=== PATIENT | female | born 1960 | race Caucasian/White ===

== ENCOUNTER → 2020-02-09 11:35 | Outpatient (CLI) | payer OTHER, SELFPAY ==
--- NOTE | ~2020-02-09 | MM_ITS ---
EXAMINATION: MM screening mammo BI HISTORY: Screening mammogram TECHNIQUE: Craniocaudal and mediolateral oblique 3-D tomosynthesis images were obtained and synthetic 2-D images were generated. CAD analysis was submitted and interpreted. COMPARISON: Comparison to multiple prior studies sequentially, with oldest reviewed study dated 04/2016. BREAST PARENCHYMAL COMPOSITION: There are scattered areas of fibroglandular density. FINDINGS: There is no evidence of suspicious mass, calcification, or architectural distortion to sugg est malignancy in either breast. There has been no suspicious interval change. IMPRESSION: 1. No mammographic evidence of malignancy. 2. Recommend routine screening mammography in one year. BI-RADS Category 1: Negative Reviewed, dictated and finalized at location A.
== END ==
PROVIDERS: PCP Internal Medicine; Visit Provider Student in an Organized Health Care Education/Training Program
DX: Z12.31 Encounter for screening mammogram for malignant neoplasm of breast (principal)
CPT/HCPCS: 77067

== ENCOUNTER → 2020-07-02 11:15 | Outpatient (CLI) | payer OTHER, SELFPAY ==
--- NOTE | ~2020-07-02 | DEXA_ITS ---
Bone Density Report Name: Ally Warner Age: 60 Sex: Female Ethnicity: White Date of : 1960 Indication: osteopenia; height loss; hysterectomy; postmenopausal Referring Provider: , ELOY De Paz Study: Bone densitometry was performed. Exam Date: July 02, 2020 Accession number: [id number] Bone Density: Region BMD T-score Z-score Classification AP Spine (L1-L4) 0.858 -1.7 -0.4 Osteopenia Femoral Neck (Left) 0.784 -0.6 0.6 Normal Total Hip (Left) 0.973 0.3 1.1 Normal Femoral Neck (Right) 0.777 -0.6 0.5 Normal Total Hip (Right) 0.939 0.0 0.8 Normal Total Hip Mean 0.956 0.2 1.0 Normal World Health Organization criteria for BMD impression classify patients as: Normal (T-score at or above -1.0), Osteopenia (T-score between -1.0 and -2.5), or Osteoporosis (T-score at or below -2.5). 10-year Fracture Risk(1): Major Osteoporotic Fracture 6.1% Hip Fracture 0.2% Reported Risk Factors: [place] (), Neck BMD=0.777, BMI=29.6 (1) FRAX(R) Version 3.08. Fracture probability calculated for an untreated patient. Fracture probability may be lower if the patient has received treatment. Previous Exams: Region Exam Age BMD T-score BMD Change BMD Change Date g/cm2 vs Baseline vs Previous AP Spine(L1-L4) 07/02/2020 60 0.858 -1.7 -0.035* -0.017 12/07/2017 57 0.875 -1.6 -0.018 -0.018 11/21/2015 55 0.893 -1.4 0.000 0.000 10/18/2013 53 0.893 -1.4 Total Hip(Left) 07/02/2020 60 0.973 0.3 -0.001 -0.012 12/07/2017 57 0.985 0.4 0.011 0.058* 11/21/2015 55 0.928 -0.1 -0.047* -0.047* 10/18/2013 53 0.974 0.3 Total Hip(Right) 07/02/2020 60 0.939 0.0 -0.028* 0.046* 12/07/2017 57 0.893 -0.4 -0.074* -0.037* 11/21/2015 55 0.929 -0.1 -0.038* -0.038* 10/18/2013 53 0.967 0.2 *Denotes significance at 95% confidence level, LSC for AP Spine = 0.022 g/cm2, LSC for Total Hip = 0.027 g/cm2 Clinical Information Provided by Patient: Has used the following medications: Vitamin D, Calcium Has the following medical conditions: Hysterectomy Patient maximum height was 64.5 Menopause Age: 47 Does not regularly consume dairy products Drinks caffeinated beverages Onset of menses at age 15 Number of children 3 Impression: The patient has low bone ma
== END ==
PROVIDERS: PCP Internal Medicine; Visit Provider Internal Medicine
DX: Z78.0 Asymptomatic menopausal state (principal); M85.88 Other specified disorders of bone density and structure, other site
CPT/HCPCS: 77080

== ENCOUNTER → 2021-04-10 15:05 | Outpatient (CLI) | payer OTHER, SELFPAY ==
--- NOTE | ~2021-04-10 | MM_ITS ---
EXAMINATION: MM screening wendi BI w philip HISTORY: Screening mammogram TECHNIQUE: Craniocaudal and mediolateral oblique 3-D tomosynthesis images were obtained and synthetic 2-D images were generated. CAD analysis was submitted and interpreted. COMPARISON: 02/09/2020, 12/23/2018, 12/07/2017 bilateral digital screening mammogram examinations BREAST PARENCHYMAL COMPOSITION: There are scattered areas of fibroglandular density. FINDINGS: There is no evidence of suspicious mass, calcification, or architectural distortion to sugg est malignancy in either breast. There has been no suspicious interval change. IMPRESSION: 1. No mammographic evidence of malignancy. 2. Recommend routine screening mammography in one year. BI-RADS Category 1: Negative Reviewed, dictated and finalized at location A.
== END ==
PROVIDERS: PCP Internal Medicine; Visit Provider Student in an Organized Health Care Education/Training Program
DX: Z12.31 Encounter for screening mammogram for malignant neoplasm of breast (principal)
CPT/HCPCS: 77063; 77067

== ENCOUNTER → 2022-04-15 15:09 | Outpatient (CLI) | payer OTHER, SELFPAY ==
--- NOTE | ~2022-04-15 | MM_ITS ---
EXAMINATION: MM screening wendi BI w philip HISTORY: Screening mammogram TECHNIQUE: Craniocaudal and mediolateral oblique 3-D tomosynthesis images were obtained and synthetic 2-D images were generated. CAD analysis was submitted and interpreted. COMPARISON: 04/10/2021, 02/09/2020, bilateral screening mammogram examinations BREAST PARENCHYMAL COMPOSITION: There are scattered areas of fibroglandular density. FINDINGS: There is no evidence of suspicious mass, calcification, or architectural distortion to sugg est malignancy in either breast. There has been no suspicious interval change. IMPRESSION: 1. No mammographic evidence of malignancy. 2. Recommend routine screening mammography in one year. BI-RADS Category 1: Negative Reviewed, dictated and finalized at location A.
== END ==
PROVIDERS: PCP Internal Medicine; Visit Provider Student in an Organized Health Care Education/Training Program
DX: Z12.31 Encounter for screening mammogram for malignant neoplasm of breast (principal)
CPT/HCPCS: 77063; 77067

== ENCOUNTER 2022-11-25 11:41 | Emergency (ER) | payer OTHER, SELFPAY ==
[2022-11-25 11:57] VITALS: BP 137/65; PULSE 82; RESP 16; TEMP 36.6; O2SAT 99
--- NOTE | 2022-11-25 12:33 | ED.URI ---
HPI - URI/Sore Throat General Chief Complaint: Upper Respiratory Infection Stated Complaint: uri Time Seen by Provider: 11/25/22 12:34 Source: patient, RN notes reviewed and old records reviewed Mode of arrival: ambulatory Limitations: no limitations History of Present Illness HPI Narrative: 62-year-old female presents to the [facility] with complaints sinus congestion and pressure as well as headache, ear fullness for almost 2 weeks. Has tried akhv-tfz-apwxcyu products but has been very cautious due to her blood pressure issues and being diabetic. Related Data Home Medications Medication Instructions Recorded Confirmed aspirin 81 mg chewable tablet 81 mg PO DAILY 11/18/19 11/25/22 (Ramo Chewable Low Dose Aspirin) atorvastatin 40 mg tablet 40 mg PO DAILY 11/18/19 11/25/22 cholecalciferol (vitamin D3) 100 4,000 unit PO DAILY 11/18/19 11/25/22 mcg (4,000 unit) capsule cinnamon bark 500 mg capsule 500 mg PO DAILY 11/18/19 11/25/22 (Cinnamon) lisinopril 10 mg tablet 10 mg PO DAILY 11/18/19 11/25/22 metoprolol succinate 50 mg capsule 50 mg PO DAILY 11/18/19 11/25/22 sprinkle, ext. release 24 hr multivitamin,lg-imva-vopfvjtu 1 tablet PO DAILY 11/18/19 11/25/22 (Complete Multivitamin tablet) psyllium (Fiber Smooth oral powder) 1 tbsp PO DAILY 11/18/19 11/25/22 ascorbic acid (vitamin C) 1,000 mg 1 g PO DAILY 11/20/20 11/25/22 tablet glipizide 10 mg tablet, extended 10 mg PO DAILY 11/20/20 11/25/22 release 24 hr zinc acetate 50 mg (zinc) capsule 50 mg PO DAILY 11/20/20 11/25/22 (Galzin) linagliptin 5 mg tablet (Tradjenta) 5 mg PO DAILY 11/25/22 11/25/22 Allergies Allergy/AdvReac Type Severity Reaction Status Date / Time hydrochlorothiazide Allergy Unknown Pass Out Verified 11/25/22 11:42 metformin AdvReac Severe Diahrrea Verified 11/25/22 11:42 Review of Systems Review of Systems: All systems reviewed & are unremarkable except as noted in HPI and below Constitutional: Constitutional: Reports no additional constitutional complaints Eyes: Eyes: Reports no additional eye complaints ENT: Reports as per HPI and Reports nasal congestion Cardiovascular: Cardiovascular: Reports no additional cardiovascular complaints, Denies chest pain and Denies dyspnea Respiratory: Respiratory: Reports no additional respiratory complaints, Denies chest congestion, Denies cough and Denies dyspnea Gastrointestinal: Gastrointestinal: Reports no additional gastrointestinal complaints, Denies abdominal pain, Denies nausea and Denies vomiting Musculoskeletal: Musculoskeletal: Reports no additional musculoskeletal complaints Integumentary/Breasts: Skin/Breast: Reports system reviewed and no additional complaints, except as docu Neurologic: Reports system reviewed and no additional complaints, except as documented Psychiatric: Psychiatric: Reports no additional psychiatric complaints Allergic/Immunologic: Allergic/Immunologic: Reports no additional allergic/immunologic complaints [facility] Past Medical History Medical History (Updated 11/25/22 @ 18:23 by Qian Pinto APRN) Diabetes H/O vaginal delivery x3 10/03/1991, 02/27/1988, 02/04/1985 High cholesterol 2011 HTN (hypertension) Osteopenia 2016 Surgical History Surgical History H/O dilation and curettage 1986 H/O removal of cyst Left Thumb History of ankle surgery Left, 1988 History of hysterectomy with unilateral oophorectomy 2010 [place] teeth removed 1978 Family History Family History Father Diabetes mellitus Mother Diabetes mellitus Hypertension Family history of elevated blood lipids Sibling Family history of malignant neoplasm of breast in first degree relative Other Family history of malignant neoplasm of breast in first degree relative Social History Social History
== END 2022-11-25 12:49 | disposition home or self-care (01) ==
PROVIDERS: Emergency Provider Nurse Practitioner; PCP Internal Medicine
DX: J32.9 Chronic sinusitis, unspecified (principal); H65.01 Acute serous otitis media, right ear; E11.9 Type 2 diabetes mellitus without complications; E78.00 Pure hypercholesterolemia, unspecified; I10 Essential (primary) hypertension; M85.80 Other specified disorders of bone density and structure, unspecified site
CPT/HCPCS: 99213; G0463

== ENCOUNTER → 2023-02-18 07:43 | Outpatient (CLI) | payer BC, SELFPAY ==
--- NOTE | ~2023-02-18 | MMUS_ITS ---
EXAMINATION: MM diagnostic wendi LT w philip, US breast LT limited HISTORY: Pain and lump in the upper outer quadrant, extending into the axilla for one month. TECHNIQUE: ML, MLO and craniocaudal 3-D tomosynthesis images of the left breast were performed and sy nthetic 2-D images were generated. CAD analysis was submitted and interpreted. High resolution upper outer quadrant left breast ultrasound was performed. COMPARISON: 04/15/2022, 04/10/2021, 02/09/2020 bilateral screening mammogram examinations BREAST PARENCHYMAL COMPOSITION: There are scattered areas of fibroglandular density. FINDINGS: MAMMOGRAPHIC FINDINGS: No suspicious mass or architectural distortion, malignant calcification, skin thickening or retractio n or significant new or developing density is detected. ULTRASOUND: No suspicious mass or shadowing, cyst or other significant finding is noted in the left breast upper outer quadrant or axilla on the left. IMPRESSION: 1. No mammographic evidence of malignancy 2. Routine annual mammographic screening is recommended BI-RADS Category 1: Negative Reviewed, dictated and finalized at location A. IMPRESSION: 1. No mammographic evidence of malignancy 2. Routine annual mammographic screening is recommended BI-RADS Category 1: Negative
== END ==
PROVIDERS: PCP Internal Medicine; Visit Provider Registered Nurse
DX: N64.4 Mastodynia (principal)
CPT/HCPCS: 76642; 77061; 77065; G0279

== ENCOUNTER → 2023-04-17 09:51 | Outpatient (CLI) | payer BC, SELFPAY ==
--- NOTE | ~2023-04-17 | DEXA_ITS ---
Bone Density Report Name: RYANN MCKENNA Age: 62 Sex: Female Ethnicity: White Date of : 1960 Indication: osteopenia; height loss; hysterectomy;postmenopausal Referring Provider: SHANIA ROCHE Study: Bone densitometry was performed. Exam Date: April 17, 2023 Accession number: [id number] Bone Density: Region BMD T-score Z-score Classification AP Spine (L1-L4) 0.827 -2.0 -0.5 Osteopenia Femoral Neck (Left) 0.741 -1.0 0.3 Normal Total Hip (Left) 0.928 -0.1 0.9 Normal Femoral Neck (Right) 0.729 -1.1 0.2 Osteopenia Total Hip (Right) 0.887 -0.4 0.5 Normal Total Hip Mean 0.908 -0.3 0.7 Normal World Health Organization criteria for BMD impression classify patients as: Normal (T-score at or above -1.0), Osteopenia (T-score between -1.0 and -2.5), or Osteoporosis (T-score at or below -2.5). 10-year Fracture Risk(1): Major Osteoporotic Fracture 7.4% Hip Fracture 0.5% Reported Risk Factors: [place] (), Neck BMD=0.729, BMI=26.9 (1) FRAX(R) Version 3.08. Fracture probability calculated for an untreated patient. Fracture probability may be lower if the patient has received treatment. Previous Exams: Region Exam Age BMD T-score BMD Change BMD Change Date g/cm2 vs Baseline vs Previous AP Spine(L1-L4) 04/17/2023 62 0.827 -2.0 -0.066* -0.031* 07/02/2020 60 0.858 -1.7 -0.035* -0.017 12/07/2017 57 0.875 -1.6 -0.018 -0.018 11/21/2015 55 0.893 -1.4 0.000 0.000 10/18/2013 53 0.893 -1.4 Total Hip(Left) 04/17/2023 62 0.928 -0.1 -0.047* -0.046* 07/02/2020 60 0.973 0.3 -0.001 -0.012 12/07/2017 57 0.985 0.4 0.011 0.058* 11/21/2015 55 0.928 -0.1 -0.047* -0.047* 10/18/2013 53 0.974 0.3 Total Hip(Right) 04/17/2023 62 0.887 -0.4 -0.080* -0.051* 07/02/2020 60 0.939 0.0 -0.028* 0.046* 12/07/2017 57 0.893 -0.4 -0.074* -0.037* 11/21/2015 55 0.929 -0.1 -0.038* -0.038* 10/18/2013 53 0.967 0.2 *Denotes significance at 95% confidence level, LSC for AP Spine = 0.022 g/cm2, LSC for Total Hip = 0.027 g/cm2 Clinical Information Provided by Patient: Has used the following medications: Vitamin D, Calcium Has the following medical conditions: Hysterectomy Patient maximum height was 65 Menopause Age: 47 Does not regularly consume dairy produc
--- NOTE | ~2023-04-17 | MM_ITS ---
EXAMINATION: MM screening wendi RT w philip HISTORY: Screening mammogram TECHNIQUE: Craniocaudal and mediolateral oblique 3-D tomosynthesis images were obtained and synthetic 2-D images were generated. CAD analysis was submitted and interpreted. COMPARISON: February 18, 2023 diagnostic left mammogram and limited left breast ultrasound examination 04/15/2022, 04/10/2021, 02/09/2020 bilateral screening mammogram examinations BREAST PARENCHYMAL COMPOSITION: There are scattered areas of fibroglandular density. FINDINGS: There is no evidence of suspicious mass, calcification, or architectural distortion to sugg est malignancy in the right breast. There has been no suspicious interval change. IMPRESSION: 1. No mammographic evidence of malignancy. 2. Recommend routine screening mammography in one year. BI-RADS Category 1: Negative Reviewed, dictated and finalized at location A.
== END ==
PROVIDERS: PCP Internal Medicine; Visit Provider Registered Nurse
DX: Z12.31 Encounter for screening mammogram for malignant neoplasm of breast (principal); M85.80 Other specified disorders of bone density and structure, unspecified site; Z78.0 Asymptomatic menopausal state
CPT/HCPCS: 77063; 77067; 77080

== ENCOUNTER → 2023-04-28 07:48 | Outpatient (CLI) | payer BC, SELFPAY ==
--- NOTE | ~2023-04-28 | MR_ITS ---
EXAMINATION: MR cervical spine wo con DATE: 04/28/2023 08:21 INDICATION: Neck pain. TECHNIQUE: Magnetic resonance imaging (MRI) of the cervical spine was performed without intravenous c ontrast. COMPARISON: None FINDINGS: There is 2 mm retrolisthesis of C5 on C6. There is hypolordosis of cervical spine. Vertebra l body heights are normal. There is moderately decreased disc height at C5-C6 and C6-C7. The spinal c ord signal intensity is normal. The following disc levels are specifically discussed: C2-C3: The disc does not extend beyond the endplate margin. There is no uncovertebral joint osteoarth ritis. There is mild bilateral facet joint osteoarthritis. There is no neural foraminal stenosis. The re is no central canal stenosis. C3-C4: The disc does not extend beyond the endplate margin. There is mild bilateral uncovertebral enrique nt osteoarthritis. There is no facet joint osteoarthritis. There is no neural foraminal stenosis. The re is no central canal stenosis. C4-C5: The disc does not extend beyond the endplate margin. There is no uncovertebral joint osteoarth ritis. There is mild left facet joint osteoarthritis. There is no neural foraminal stenosis. There is no central canal stenosis. C5-C6: There is a left central extrusion. There is severe bilateral uncovertebral joint osteoarthriti s. There is mild bilateral facet joint osteoarthritis. There is mild bilateral neural foraminal steno sis. There is moderate central canal stenosis with ventral and dorsal indentation of the spinal cord. C6-C7: There is a central extrusion. There is moderate bilateral uncovertebral joint osteoarthritis. There is mild left facet joint osteoarthritis. There is mild left neural foraminal stenosis. There is mild central canal stenosis. C7-T1: The disc does not extend beyond the endplate margin. There is no uncovertebral joint osteoarth ritis. There is mild bilateral facet joint osteoarthritis. There is no neural foraminal stenosis. The re is no central canal stenosis. IMPRESSION: 1. Moderate cervical spondylosis. Reviewed, dictated and finalized at location A.
== END ==
PROVIDERS: PCP Internal Medicine; Visit Provider Internal Medicine
DX: M47.892 Other spondylosis, cervical region (principal)
CPT/HCPCS: 72141

== ENCOUNTER 2023-06-05 10:17 | Emergency (ER) | payer BC, SELFPAY ==
[2023-06-05 10:27] VITALS: BP 124/58; PULSE 86; RESP 12; TEMP 36.3; O2SAT 100
--- NOTE | 2023-06-05 10:48 | ED.FEMALEGU ---
HPI - Female Genitourinary General Chief complaint: Urogenital-Female Stated complaint: Vaginal Problems Time Seen by Provider: 06/05/23 10:36 Source: patient and RN notes reviewed Mode of arrival: ambulatory Limitations: no limitations History of Present Illness HPI Narrative: Patient presents today complaining of external genital itching since March. States she was initially seen by her PCP at the beginning of May for the external itching and some vaginal discharge, and prescribed Metrogel for bacterial vaginosis, which she tested positive for. When she did not get any improvement in her symptoms with the Metrogel, they prescribed her a 7 day course of Flagyl. She is currently on day 5. States the discharge has improved, but the external itching and irritation has persisted. She is wondering whether not she may have a yeast infection. History of diabetes. Related Data Home Medications Medication Instructions Recorded Confirmed aspirin 81 mg chewable tablet 81 mg PO DAILY 11/18/19 11/25/22 (Ramo Chewable Low Dose Aspirin) atorvastatin 40 mg tablet 40 mg PO DAILY 11/18/19 11/25/22 cholecalciferol (vitamin D3) 100 4,000 unit PO DAILY 11/18/19 11/25/22 mcg (4,000 unit) capsule lisinopril 10 mg tablet 10 mg PO DAILY 11/18/19 11/25/22 metoprolol succinate 50 mg capsule 50 mg PO DAILY 11/18/19 11/25/22 sprinkle, ext. release 24 hr multivitamin,yg-stkf-qibmwate 1 tablet PO DAILY 11/18/19 11/25/22 (Complete Multivitamin tablet) psyllium (Fiber Smooth oral powder) 1 tbsp PO DAILY 11/18/19 11/25/22 glipizide 10 mg tablet, extended 10 mg PO DAILY 11/20/20 11/25/22 release 24 hr linagliptin 5 mg tablet (Tradjenta) 5 mg PO DAILY 11/25/22 11/25/22 metronidazole 500 mg tablet mg 06/05/23 Allergies Allergy/AdvReac Type Severity Reaction Status Date / Time hydrochlorothiazide Allergy Unknown Pass Out Verified 01/14/23 08:04 sitagliptin [From Januvia] Allergy Dyspnea / Verified 06/05/23 10:28 SOB metformin AdvReac Severe Diahrrea Verified 01/14/23 08:04 Review of Systems Review of Systems: CONSTITUTIONAL: Denies body aches, fever, chills, or sweats. EYES: Denies visual changes, redness, or discharge. ENT: Denies rhinorrhea, congestion, sore throat, or otalgia. CARDIOVASCULAR: Denies chest pain, palpitations, or edema. RESPIRATORY: Denies cough or dyspnea. GASTROINTESTINAL: Denies abdominal pain, nausea, vomiting, or diarrhea. GENITOURINARY: Denies dysuria or hematuria.+ external genital itching and irritation SKIN: Denies rash, itching, or wounds. MUSCULOSKELETAL: Denies back pain, joint pain, or myalgia. NEUROLOGIC: Denies headache, numbness, tingling, or weakness. PSYCH: Denies depression or anxiety. [facility] Past Medical History Medical History (Updated 06/05/23 @ 11:00 by Gregoria Beck, KVNG, BC) Diabetes H/O vaginal delivery x3 10/03/1991, 02/27/1988, 02/04/1985 High cholesterol 2011 HTN (hypertension) Osteopenia 2015 Surgical History Surgical History H/O dilation and curettage 1986 H/O removal of cyst Left Thumb History of ankle surgery Left, 1988 History of hysterectomy with unilateral oophorectomy 2010 [place] teeth removed 1978 Family History Family History Father Diabetes mellitus Mother Diabetes mellitus Hypertension Family history of elevated blood lipids Sibling Family history of malignant neoplasm of breast in first degree relative Other Family history of malignant neoplasm of breast in first degree relative Social History Social History Smoking status: Never smoker Second hand tobacco smoke exposure: No Alcohol intake: never Substance use: never Lack of Transportation: No Lack of Food: Never True Current Housing: I Have Housing Concerned About Future Housing:
== END 2023-06-05 11:06 | disposition home or self-care (01) ==
PROVIDERS: Emergency Provider Nurse Practitioner; PCP Internal Medicine
DX: N76.0 Acute vaginitis (principal); E11.9 Type 2 diabetes mellitus without complications; E78.00 Pure hypercholesterolemia, unspecified; I10 Essential (primary) hypertension; M85.80 Other specified disorders of bone density and structure, unspecified site; Z79.82 Long term (current) use of aspirin
CPT/HCPCS: 87070; 99213; G0463

== ENCOUNTER → 2023-06-16 09:05 | Outpatient (CLI) | payer BC, SELFPAY ==
--- NOTE | ~2023-06-16 | US_ITS ---
Limited Abdominal Sonogram: Real-time sonographic imaging of the right upper quadrant was performed. Clinical History: Abdominal pain Findings: The liver appears normal with no evidence of mass lesion or bile duct dilatation. Main por que vein demonstrates normal direction of flow. The gallbladder is partially distended, and contains echogenic, shadowing gallstones. The common bile duct measures 4 mm. The visualized pancreas, aorta, and IVC are unremarkable. Impression: Cholelithiasis. Reviewed, dictated and finalized at location M. Impression: Cholelithiasis.
== END ==
PROVIDERS: PCP Internal Medicine; Visit Provider Nurse Practitioner
DX: R10.13 Epigastric pain (principal); R07.89 Other chest pain; K80.20 Calculus of gallbladder without cholecystitis without obstruction
CPT/HCPCS: 76705

== ENCOUNTER 2023-06-19 02:23 | Day surgery (SDC) | payer BC, SELFPAY ==
[2023-06-19 11:19] VITALS: BP 148/81; PULSE 90; RESP 16; TEMP 36.3; O2SAT 100; BMI 25.7
--- NOTE | 2023-06-19 11:28 | WPDHPUPDATE1 ---
History and Physical Update Update Date/Time: 06/19/23 11:28 Patient Reproductive see improvement since being seen in the GI office. Pantoprazole and Carafate suspension has diminished her pain suggesting she may have acid reflux. She has much less short of breath and her chest discomfort has improved. She states she recently was identified as having gallstones it is uncertain how this contributes to her difficulty. History and Physical has been reviewed, including an updated exam of the patient. There are NO changes in the patient's condition. Risks, benefits, and alternatives have been discussed and questions answered. Patient agrees to proceed with procedure.
[2023-06-19] MEDS: LACTATED RINGERS 1,000 ML 150 ML IV CONT (11:31)
--- NOTE | 2023-06-19 11:32 | WPDANESEPPF ---
Anes - Initial Pre Proc Eval Procedure: Operation Date: 06/19/23 12:30 Proposed Procedures p Esophagogastroduodenoscopy & Screening Colonoscopy - Chan Saravia MD Date/Time: 06/19/23 11:32 Surgeon: Chan Saravia MD Pre Op Diagnosis: dysphagia,anorexia,eructation,other chest pain Patient Data Age: 63 Gender: F Height: 1.63 m Weight: 68 kg Last Vital Signs Temp 97.3 F L 06/19/23 11:19 Pulse 90 06/19/23 11:19 Resp 16 06/19/23 11:19 BP 148/81 H 06/19/23 11:19 Pulse Ox 100 06/19/23 11:19 O2 Del Method Room Air 06/19/23 11:19 Allergies Allergy/AdvReac Type Severity Reaction Status Date / Time hydrochlorothiazide Allergy Unknown Pass Out Verified 06/19/23 11:16 latex Allergy Itching Verified 06/19/23 11:16 sitagliptin [From Novia] Allergy Dyspnea / Verified 06/19/23 11:16 SOB metformin AdvReac Severe Diahrrea Verified 06/19/23 11:16 Home Medications Medication Instructions Recorded Confirmed Type aspirin 81 mg chewable tablet 81 mg PO DAILY 11/18/19 06/19/23 History (Ramo Chewable Low Dose Aspirin) atorvastatin 40 mg tablet 40 mg PO DAILY 11/18/19 06/19/23 History cholecalciferol (vitamin D3) 100 4,000 unit PO DAILY 11/18/19 06/19/23 History mcg (4,000 unit) capsule lisinopril 10 mg tablet 10 mg PO DAILY 11/18/19 06/19/23 History metoprolol succinate 50 mg capsule 50 mg PO DAILY 11/18/19 06/19/23 History sprinkle, ext. release 24 hr multivitamin,jw-kxsr-xbbpbllz 1 tablet PO DAILY 11/18/19 06/19/23 History (Complete Multivitamin tablet) glipizide 10 mg tablet, extended 10 mg PO DAILY 11/20/20 06/19/23 History release 24 hr pantoprazole 40 mg tablet,delayed 40 mg PO BID #60 tabs 06/10/23 06/19/23 Rx release sucralfate 1 gram tablet 1 g PO ACHS #120 tabs 06/10/23 06/19/23 Rx Patient hx anesthesia problems: none Family hx anesthesia problems: none Results Review: All pre-operative results and documents have been reviewed as part of the pre-operative evaluation. [facility] Past Medical History Medical History (Updated 06/16/23 @ 09:34 by Iesha De Los Santos APRN) Atypical chest pain Belching Colon cancer screening Decreased appetite Diabetes Dysphagia Dysphonia Epigastric abdominal tenderness Gallstones H/O vaginal delivery x3 10/03/1991, 02/27/1988, 02/04/1985 High cholesterol 2011 HTN (hypertension) Moist mucous membranes of ear, nose, and throat Osteopenia 2015 SOB (shortness of breath) Surgical History Surgical History H/O dilation and curettage 1986 H/O removal of cyst Left Thumb History of ankle surgery Left, 1987 History of hysterectomy with unilateral oophorectomy 2009 [place] teeth removed 1978 Family History Family History Father Diabetes mellitus Mother Diabetes mellitus Hypertension Family history of elevated blood lipids Sibling Family history of malignant neoplasm of breast in first degree relative Other Family history of malignant neoplasm of breast in first degree relative Social History Social History Smoking status: Never smoker Second hand tobacco smoke exposure: No Alcohol intake: never Substance use: never Lack of Transportation: No Lack of Food: Never True Current Housing: I Have Housing Concerned About Future Housing: No Difficulty Paying Gas/Electric Bills: No Difficulty Paying for Meds: No Currently Unemployed: YES Living arrangements: with family Occupation/Education: retired Gender identity (if verbalized by the patient): Female Sexual Orientation (if Verbalized by the Patient): Straight or Heterosexual Spiritual care concerns: No Anes - Eval Final PreProcedure Day of Procedure 06/19/23 11:32 Patient weight: normal Heart: regular rate and rhythm Lungs: clear to auscultation
[2023-06-19 11:34] LABS: Glucose Point of Care 140 mg/dl (65-105)
[2023-06-19] MEDS: BENZOCAINE (*SP) 60 ML SPRAY CAN (HURRICAINE) 1 SPRAY MUCOUS MEM (11:38)
--- NOTE | 2023-06-19 11:47 | SUR.OPER ---
EGD ended at 1141. Colonoscopy started at 1147.
[2023-06-19 12:03] VITALS: BP 97/55; PULSE 73; RESP 18; O2SAT 98
[2023-06-19 12:13] VITALS: BP 122/71; PULSE 72; RESP 23; O2SAT 100
[2023-06-19 12:23] VITALS: BP 129/72; PULSE 60; RESP 17; O2SAT 100
== END 2023-06-19 12:33 | disposition home or self-care (01) ==
PROVIDERS: PCP Internal Medicine; Visit Provider Internal Medicine Gastroenterology
PROC: 0DJ08ZZ Inspection of Upper Intestinal Tract, Via Natural or Artificial Opening Endoscopic (ICD-10-PCS; CPT 43235; principal; 2023-06-19 12:30)
DX: Z12.11 Encounter for screening for malignant neoplasm of colon (principal); K64.8 Other hemorrhoids; R07.89 Other chest pain; E11.9 Type 2 diabetes mellitus without complications; I10 Essential (primary) hypertension; E78.00 Pure hypercholesterolemia, unspecified; Z79.82 Long term (current) use of aspirin; Z79.84 Long term (current) use of oral hypoglycemic drugs
CPT/HCPCS: 45378; 43239; 82948; 87081; J2704; J7120

== ENCOUNTER 2023-06-29 09:13 | Outpatient (CLI) | payer BC, SELFPAY ==
[2023-06-29 10:09] LABS: Amylase 48 U/L (30-110); Lipase 80 U/L (23-300)
[2023-06-29 12:09] LABS: Sodium 135 mmol/L (137-145)
== END 2023-06-29 09:14 | disposition home or self-care (01) ==
LOC: ANHSURGERY 09:16
PROVIDERS: Anesthesiology; PCP Internal Medicine; Visit Provider Surgery
DX: K80.20 Calculus of gallbladder without cholecystitis without obstruction (principal); E87.1 Hypo-osmolality and hyponatremia; Z01.818 Encounter for other preprocedural examination
CPT/HCPCS: 36415; 82150; 83690; 84295; 86850; 86900; 86901

== ENCOUNTER 2023-07-02 00:32 | Day surgery (SDC) | payer BC, SELFPAY ==
--- NOTE | 2023-06-26 12:13 | PC.NURSE ---
PRE-OP INSTRUCTIONS, PLEASE READ CAREFULLY Report to the Outpatient Waiting Room, entrance under the green pavilion located off [facility], at time _0615_ on date _07/02/23_. Planned Procedure Time: _0815_. Time changes happen often and if your time is changed the preop area will call you the afternoon before. - You and your visitor will be asked to self-screen and do not enter if you have any COVID symptoms. - A mask is optional within the hospital at this time. Patients may have clear liquids (water, carbonated beverages, clear teas, apple juice) until 3 hours prior to surgery (0515 AM) with a maximum of 20 ounces. - No food from midnight until time of surgery Take the following medications with a SIP of water the morning of surgery: _METOPROLOL_ DO NOT STOP ANY OF YOUR OTHER PRESCRIPTION MEDICATIONS PRIOR TO SURGERY ?EXCEPT THE FOLLOWING Medications to discontinue per ANESTHESIA - _MULTIVITAMIN, CRANBERRY 3 DAYS PRIOR TO SURGERY, Date to take last dose 06/28/23_ Please no make-up, nail kyrgyz, hairspray, perfume, deodorant, or body powder the day of surgery. No jewelry (including any body piercings) or valuables the day of surgery, leave them at home. Please take a shower or bath the night before, or the morning of, surgery with an antibacterial soap. Wear comfortable, loose fitting clothing. - Jewelry must be removed prior to entering the operating room. Rings and piercings that are not removed may be cut off. - The hospital will not accept responsibility for valuables. - Please leave all valuables, including medications, at home the day of surgery. If you are going home after surgery, a licensed taxi driver must drive you home. - NO public transportation without another adult if you receive anesthesia. - We recommend that an adult stay with you for 24 hours following discharge. - We also recommend that you do not drive, make important decision, drink alcoholic beverages, or take any drugs that were not prescribed by your health care provider for at least 24 hours after your discharge time. Follow any additional instructions given to you from your surgeon. HIBICLENS SHOWER AM OF SURGERY If you or anyone in your household have experienced Covid symptoms in the past week, please notify your surgeon or the nurse liaison at the phone number below for possible testing. Telephone instructions given to _PATIENT_and asked if any additional questions and then verbalized understanding. Patient advised to call surgeon office or pre surgery nurse liaison [phone] if any additional questions.
[2023-07-02] VITALS (9 sets, daily range): BP systolic 119–147; BP diastolic 54–68; PULSE 52–80; RESP 12–16; TEMP 36.1–36.3; O2SAT 98–100
[2023-07-02] MEDS: INDOCYANINE GREEN 25 MG VIAL WITH DILUENT 3.75 MG IV PUSH (07:15)
[2023-07-02 07:20] LABS: Glucose Point of Care 169 mg/dl (65-105)
[2023-07-02] MEDS: ACETAMINOPHEN 500 MG TABLET 1000 MG PO (07:20)
--- NOTE | 2023-07-02 07:21 | WPDANESEPPF ---
Anes - Initial Pre Proc Eval Procedure: Operation Date: 07/02/23 08:15 Proposed Procedures p Laparoscopic Cholecystectomy, Davinci Assisted, Possible Open - Sebastian Mendieta DO Date/Time: 07/02/23 07:21 Surgeon: Sebastian Mendieta DO Pre Op Diagnosis: Sym Cholelithiasis Patient Data Age: 63 Gender: F Height: 1.63 m Weight: 79.5 kg Allergies Allergy/AdvReac Type Severity Reaction Status Date / Time hydrochlorothiazide Allergy Unknown Pass Out Verified 06/26/23 11:47 latex Allergy Itching Verified 06/26/23 11:47 sitagliptin [From Novuvia] Allergy Dyspnea / Verified 06/26/23 11:47 SOB metformin AdvReac Severe Diahrrea Verified 06/26/23 11:47 Home Medications Medication Instructions Recorded Confirmed Type aspirin 81 mg chewable tablet 81 mg PO DAILY 11/18/19 06/30/23 History (Ramo Chewable Low Dose Aspirin) atorvastatin 40 mg tablet 40 mg PO DAILY 11/18/19 06/30/23 History lisinopril 10 mg tablet 10 mg PO DAILY 11/18/19 06/30/23 History metoprolol succinate 50 mg capsule 50 mg PO DAILY 11/18/19 06/30/23 History sprinkle, ext. release 24 hr multivitamin,ai-[id number]-[id number] 1 tablet PO DAILY 11/18/19 06/30/23 History (Complete Multivitamin tablet) glipizide 10 mg tablet, extended 10 mg PO DAILY 11/20/20 06/30/23 History release 24 hr pantoprazole 40 mg tablet,delayed 40 mg PO BID #60 tabs 06/10/23 06/30/23 Rx release Calcium 600 + D(3) 1 cap DAILY 06/26/23 06/30/23 History cranberry 1 cap DAILY 06/26/23 06/30/23 History Laboratory Tests 07/02/23 07:15 POC Capillary Glucose 169 H mg/dl (65-105) Patient hx anesthesia problems: post op nausea/vomiting Family hx anesthesia problems: none Results Review: All pre-operative results and documents have been reviewed as part of the pre-operative evaluation. [facility] Past Medical History Medical History Atypical chest pain Belching Colon cancer screening Decreased appetite Diabetes Dysphagia Dysphonia Epigastric abdominal tenderness Gallstones H/O vaginal delivery x3 10/03/1991, 02/27/1988, 02/04/1985 High cholesterol 2011 HTN (hypertension) Moist mucous membranes of ear, nose, and throat Osteopenia 2015 SOB (shortness of breath) Surgical History Surgical History H/O dilation and curettage 1986 H/O removal of cyst Left Thumb History of ankle surgery Left, 1987 History of hysterectomy with unilateral oophorectomy 2010 [place] teeth removed 1978 Family History Family History Father Diabetes mellitus Mother Diabetes mellitus Hypertension Family history of elevated blood lipids Sibling Family history of malignant neoplasm of breast in first degree relative Other Family history of malignant neoplasm of breast in first degree relative Social History Social History Smoking status: Never smoker Second hand tobacco smoke exposure: No Alcohol intake: never Substance use: never Substance use type: does not use Lack of Transportation: No Lack of Food: Never True Current Housing: I Have Housing Concerned About Future Housing: No Difficulty Paying Gas/Electric Bills: No Difficulty Paying for Meds: No Currently Unemployed: YES Living arrangements: with family Occupation/Education: retired Gender identity (if verbalized by the patient): Female Sexual Orientation (if Verbalized by the Patient): Straight or Heterosexual Spiritual care concerns: No Anes - Eval Final PreProcedure Day of Procedure 07/02/23 07:21 Patient weight: overweight Heart: regular rate and rhythm Lungs: clear to auscultation Airway: Mallampati scale class II Neurological: alert and oriented Last oral intake: >/= 8 hours ASA classification: III Emergent:
--- NOTE | 2023-07-02 07:39 | WPDHPUPDATE1 ---
History and Physical Update Update Date/Time: 07/02/23 07:39 History and Physical has been reviewed, including an updated exam of the patient. There are NO changes in the patient's condition. Risks, benefits, and alternatives have been discussed and questions answered. Patient agrees to proceed with procedure.
[2023-07-02] MEDS: SCOPOLAMINE 1.5 MG PATCH TRANSDERM (07:40)
[2023-07-02] MEDS: KETOROLAC 15 MG/ML VIAL (*BKC) IV PUSH (07:40)
[2023-07-02] MEDS: ceFAZolin 2 GM/D5W 50 ML 2 GM/50 ML BAG IVPB (08:26)
[2023-07-02] MEDS: BUPIVACAINE/EPINEPHRINE 0.25% 10 ML VIAL 30 ML INFILTRATE (09:06)
--- NOTE | 2023-07-02 09:44 | W.PM.PROC2 ---
Procedure Note - Detailed Date of Procedure 07/02/23 Pre-op Diagnosis Symptomatic cholelithiasis Post-op Diagnosis Same Procedure Performed 1. Laparoscopic cholecystectomy with cholangiography, da Khoa assisted 2. Interpretation of cholangiography Surgeon Sebastian Mendieta, Anesthesia General and Local (0.5% bupivacaine) Indications This is a 63-year-old woman who presented with upper abdominal pain that had been happening intermittently over the past several months. She has been to the emergency department for the symptoms. She was seen by GI and EGD was essentially normal. She had a gallbladder ultrasound which showed evidence of cholelithiasis. Discussions were made with the patient about treatment options and decision was made to proceed with laparoscopic cholecystectomy, da Khoa assisted. Findings Robotic assisted laparoscopic cholecystectomy was performed. The gallbladder had a few pericholecystic adhesions and contained multiple gallstones. The cystic duct appeared normal in size. Indocyanine green was used with near infrared fluorescence imaging to identify the cystic duct and biliary anatomy. No abnormal anatomic variants were noted. The gallbladder was removed and sent to the lab for pathology. Description of Procedure Procedure as well as risks, benefits, and alternatives were discussed with the patient. Written consent was obtained and placed in chart prior to procedure. 1.5 mL of indocyanine green was given intravenously in preop. Patient was brought back to surgical suite. She was placed supine on operating table. Time-out was done to confirm patient and procedure. She was then intubated by the anesthesia department. Her abdomen was then prepped and draped in sterile fashion using chlorhexidine prep. 0.5% bupivacaine was infiltrated locally at the site of each port placement. An 8 mm incision was made just superior to the umbilicus and a 5 mm Optiview trocar was then advanced through the abdominal layers under direct visualization. Once inside the abdominal cavity, carbon dioxide insufflation was used to create a pneumoperitoneum. The camera was inserted and the abdomen was inspected. No mediated abnormalities were noted. The patient was placed in 10? reverse Trendelenburg position and rotated 10? to the left. Two 8 mm incisions were made in the right lateral abdomen and 2 8 mm trocars were inserted under direct visualization. An 8 mm incision was made in the left lateral abdomen and an 8 mm port was placed under direct visualization. The 5 mm Optiview trocar was then removed and another 8 mm trocar was inserted in its place. The robotic arms were then brought up to the patient's bedside and secured to each port. The camera and instruments were inserted. I then moved over to the robotic consult to take control of the camera and instruments. The gallbladder was grasped at the fundus and retracted cephalad. The infundibulum of the gallbladder was then grasped and retracted laterally. Hook electrocautery was then used to carefully dissect around the neck of the gallbladder. The cystic duct was identified and a window was created around it using hook electrocautery. The cystic artery was also identified and a window was created behind it using hook electrocautery. Critical view of safety was identified visualizing the cystic duct running directly into the neck of the gallbladder and the cystic artery running directly into the wall the gallbladder. The camera view was switched to firefly mode and the indocyanine green within the gallbladder and cystic duct was clearly visualized. No other structures were noted running into this region and there did not appear to be any obstruction of the cystic duct impeding flow of bile into the gallbladder. The camera mode was switched back to regular mode. Hemo lock clips were placed on both the cystic duct and cystic artery. Two clips were placed proximally and 1 distally. Hook electrocau
[2023-07-02] MEDS: LACTATED RINGERS 1,000 ML 30 ML IV CONT (09:53)
[2023-07-02 09:59] LABS: Glucose Point of Care 200 mg/dl (65-105)
[2023-07-02] MEDS: MEPERIDINE HCL INJ (*CRX) 50 MG/ML AMPUL 25 MG IV PUSH (10:48)
[2023-07-02] MEDS: oxyCODONE HCL (*CRX) 5 MG TAB IR PO (11:36)
== END 2023-07-02 12:30 | disposition home or self-care (01) ==
PROVIDERS: PCP Internal Medicine; Visit Provider Surgery
PROC: 0FT44ZZ Resection of Gallbladder, Percutaneous Endoscopic Approach (ICD-10-PCS; CPT 47562; principal; 2023-07-02 08:15)
DX: K80.10 Calculus of gallbladder with chronic cholecystitis without obstruction (principal); I10 Essential (primary) hypertension; E11.9 Type 2 diabetes mellitus without complications; E78.00 Pure hypercholesterolemia, unspecified; M85.80 Other specified disorders of bone density and structure, unspecified site; Z79.82 Long term (current) use of aspirin; Z79.84 Long term (current) use of oral hypoglycemic drugs
CPT/HCPCS: 47563; 74300; S2900; 82948; 88304; A9270; J0690; J1100; J1885; J2175; J2250; J2405; J2704; J3010; J7030; J7120

== ENCOUNTER → 2023-07-09 12:43 | Outpatient (CLI) | payer BC, SELFPAY ==
--- NOTE | ~2023-07-09 | US_ITS ---
EXAMINATION: US pelvic complete w TV DATE: 07/09/2023 13:12 INDICATION: Pelvic and perineal pain Comparison:No prior studies for comparison. TECHNIQUE: Multiple transabdominal and endovaginal sonographic images of the pelvis performed. FINDINGS: The uterus is surgically absent. The ovaries are not visualized, likely atrophic. There is no free fluid in the pelvis. There are no abnormal masses seen on either side. IMPRESSION: 1. Unremarkable pelvic ultrasound. Reviewed, dictated and finalized at location L.
== END ==
PROVIDERS: PCP Internal Medicine; Visit Provider Registered Nurse
DX: R10.2 Pelvic and perineal pain (principal)
CPT/HCPCS: 76830; 76856

== ENCOUNTER → 2023-10-05 14:05 | Outpatient (CLI) | payer BC, SELFPAY ==
--- NOTE | ~2023-10-05 | CT_ITS ---
IMPRESSION: 1. No CT correlate for the patient's symptoms. EXAMINATION: CT diagnostic chest wo con DATE: 10/05/2023 14:43 INDICATION: Sternum pain TECHNIQUE: Computed tomography (CT) of the chest was performed without intravenous contrast. The dose -length product (DLP) was 174.06 mGy-cm. Automated exposure control and iterative reconstruction tech Fobblerque were employed. COMPARISON: None FINDINGS: The lungs are free of acute opacities. No pleural effusion or pneumothorax. No pathological ly enlarged thoracic lymph nodes are identified. The heart size is normal. The sternum is unremarkabl e. There is mild thoracic spondylosis. Changes of cholecystectomy are noted. IMPRESSION: 1. No CT correlate for the patient's symptoms. Reviewed, dictated and finalized at location F. LE DEVELOPMENT MANAGER
== END ==
PROVIDERS: PCP Internal Medicine; Visit Provider Internal Medicine
DX: R07.89 Other chest pain (principal)
CPT/HCPCS: 71250

== ENCOUNTER 2024-04-29 06:59 | Outpatient (CLI) | payer BC, SELFPAY ==
--- NOTE | ~2024-04-29 | MM_ITS ---
EXAMINATION: MM screening [facility] BI w philip HISTORY: Screening TECHNIQUE: Craniocaudal and mediolateral oblique 3-D tomosynthesis images were obtained and synthetic 2-D images were generated. CAD analysis was submitted and interpreted. COMPARISON: Comparison to multiple prior studies sequentially, with oldest reviewed study dated 02/08. BREAST PARENCHYMAL COMPOSITION: Not dense: There are scattered areas of fibroglandular density. FINDINGS: There is no evidence of suspicious mass, calcification, or architectural distortion to sugg est malignancy in either breast. There has been no suspicious interval change. IMPRESSION: 1. No mammographic evidence of malignancy. 2. Recommend routine screening mammography in one year. BI-RADS Category 1: Negative Reviewed, dictated and finalized at location B.
== END 2024-04-29 07:00 ==
LOC: MICIMG 07:00
PROVIDERS: PCP Internal Medicine; Visit Provider Nurse Practitioner Family
DX: Z12.31 Encounter for screening mammogram for malignant neoplasm of breast (principal)
CPT/HCPCS: 77063; 77067

== ENCOUNTER 2025-05-02 07:24 | Outpatient (CLI) | payer BC, SELFPAY ==
--- NOTE | ~2025-05-02 | DEXA_ITS ---
Bone Density Report Name: RYANN MCKENNA Age: 64 Sex: Female Ethnicity: White Date of : 1960 Indication: osteopenia; height loss; prior fracture; hysterectomy; Referring Provider: CELESTE VILLANUEVA Study: Bone densitometry was performed. Exam Date: May 02, 2025 Accession number: [id number] Bone Density: Region BMD T-score Z-score Classification AP Spine(L1-L4) 0.790 -2.3 -0.7 Osteopenia Femoral Neck (Left) 0.725 -1.1 0.3 Osteopenia Total Hip (Left) 0.867 -0.6 0.5 Normal Femoral Neck (Right) 0.669 -1.6 -0.2 Osteopenia Total Hip (Right) 0.842 -0.8 0.3 Normal Total Hip Mean 0.854 -0.7 0.4 Normal World Health Organization criteria for BMD impression classify patients as: Normal (T-score at or above -1.0), Osteopenia (T-score between -1.0 and -2.5), or Osteoporosis (T-score at or below -2.5). 10-year Fracture Risk: FRAX not reported because: Prior hip or vertebral fracture Previous Exams: -- Region Exam Age BMD T-score BMD Change BMD Change Date g/cm2 vs Baseline vs Previous -- AP Spine (L1-L4) 05/02/2025 64 0.790 -2.3 -11.6%* -4.5%* 04/17/2023 62 0.827 -2.0 -7.4%* -3.6%* 07/02/2020 60 0.858 -1.7 -3.9%* -1.9% 12/07/2017 57 0.875 -1.6 -2.1% -2.1% 11/21/2015 55 0.893 -1.4 0.0% 0.0% 10/18/2013 53 0.893 -1.4 Total Hip(Left) 05/02/2025 64 0.867 -0.6 -11.0%* -6.5%* 04/17/2023 62 0.928 -0.1 -4.8%* -4.7%* 07/02/2020 60 0.973 0.3 -0.1% -1.2% 12/07/2017 57 0.985 0.4 1.2% 6.2%* 11/21/2015 55 0.928 -0.1 -4.8%* -4.8%* 10/18/2013 53 0.974 0.3 Total Hip(Right) 05/02/2025 64 0.842 -0.8 -12.9%* -5.1%* 04/17/2023 62 0.887 -0.4 -8.2%* -5.5%* 07/02/2020 60 0.939 0.0 -2.9%* 5.1%* 12/07/2017 57 0.893 -0.4 -7.7%* -3.9%* 11/21/2015 55 0.929 -0.1 -3.9%* -3.9%* 10/18/2013 53 0.967 0.2 -- *Denotes significance at 95% confidence level, LSC for AP Spine = 0.022 g/cm2, LSC for Total Hip = 0.027 g/cm2 Clinical Information Provided by Patient: Have had a previous hip or vertebral fracture Has had a low trauma fracture Has used the following medications: Vitamin D, Calcium Has the following medical conditions: Hysterectomy Patient maximum height was 65.0 Menopause Age: 47 Drinks caffeinated beverages Onset of menses at age 15 Number of children 3 Impression: The patient has low bone mass, based on the Total Spine T-score. The patient has risk factors, including: previous fracture. The BMD for the AP Spine (L1-L4) decreased, changing by -4.5% since the last DXA exam. The BMD for the Total Hip(Left) decreased, changing by -6.5% since the last DXA exam. The BMD for the Total Hip(Right) decreased, changing by -5.1% since the last DXA exam. Discussion: INCREASED RISK OF FRACTURE DUE TO HISTORY OF FRACTURE. The patient's previous fracture puts the patient at high risk of a future fracture. In untreated patients, the risk of osteoporotic fracture increases approximately two-fold for each 1.0 SD decrease in T-score. Low bone density is not the only risk factor for fracture; also consider factors such as patient's age, frailty or poor health, risk of falling, risk of injury, previous osteoporotic fracture, family history of osteoporosis, cigarette smoking, low body weight, etc. Not everyone with a low trauma fracture has osteoporosis; osteomalacia and other metabolic bone disorders should also be considered. Patients who have osteoporosis should be evaluated for specific diseases and conditions (secondary causes) that may cause or contribute to bone loss and fracture risk. National Osteoporosis Foundation (NOF) recommends pharmacologic intervention for patients with a prior hip or vertebral fracture regardless of BMD T-score. The patient should follow a healthful lifestyle (good nutrition with adequate calcium and vitamin D, and appropriate weight-bearing exercise). Follow-Up: Consider a repeat BMD and Vertebral Fracture Assessment (VFA) exam in 2 years or sooner if medically necessary, to reassess this patient's status. Reported by: MARY JANE on 05/02/2025 8:08:00 AM. Reviewed, dictated and finalized at location A.
--- NOTE | ~2025-05-02 | MM_ITS ---
EXAMINATION: MM screening [facility] BI w philip HISTORY: Screening TECHNIQUE: Craniocaudal and mediolateral oblique 3-D tomosynthesis images were obtained and synthetic 2-D images were generated. CAD analysis was submitted and interpreted. COMPARISON: Comparison to multiple prior studies sequentially, with oldest reviewed study dated 02/08. BREAST PARENCHYMAL COMPOSITION: Not dense: There are scattered areas of fibroglandular density. FINDINGS: There is no evidence of suspicious mass, calcification, or architectural distortion to sugg est malignancy in either breast. There has been no suspicious interval change. IMPRESSION: 1. No mammographic evidence of malignancy. 2. Recommend routine screening mammography in one year. BI-RADS Category 1: Negative Reviewed, dictated and finalized at location A.
== END 2025-05-02 07:25 | disposition home or self-care (01) ==
LOC: MICIMG 07:25
PROVIDERS: PCP Internal Medicine; Visit Provider Nurse Practitioner Family
DX: Z12.31 Encounter for screening mammogram for malignant neoplasm of breast (principal); M85.89 Other specified disorders of bone density and structure, multiple sites; Z78.0 Asymptomatic menopausal state
CPT/HCPCS: 77063; 77067; 77080